=== PATIENT | male | born 1990 | race Two or more races ===

== ENCOUNTER 2020-02-20 01:54 | Emergency (ER) | payer SELFPAY ==
[~2020-02-20] VITALS: Ht 175.3 cm; Wt 81.6 kg
[2020-02-20] MEDS ORDERED: TETANUS-DIPTH-ACEL PERTUSSIS 0.5ML SYR Tdap IM ONE (03:15)
[2020-02-20] MEDS ORDERED: cefTRIAXone 1GM/50ML D5W 50 ML IV ONE (03:15)
[2020-02-20] MEDS ORDERED: MORPHINE SULFATE 4 MG/ML SYR/VIAL IV ONE (05:15)
[2020-02-20] MEDS ORDERED: NITROGLYCERIN 0.4 MG SL TAB SL ONE (05:15)
[2020-02-20 05:22] VITALS: BP 97/44
== END 2020-02-20 06:30 | disposition home or self-care (01) ==
LOC: EDBD 01:54 → ER 01:54
DX: S00.81XA Abrasion of other part of head, initial encounter (principal); F19.10 Other psychoactive substance abuse, uncomplicated; F23 Brief psychotic disorder; F10.921 Alcohol use, unspecified with intoxication delirium; X58.XXXA Exposure to other specified factors, initial encounter; Y93.89 Activity, other specified; Y92.89 Other specified places as the place of occurrence of the external cause; Y99.8 Other external cause status
CPT/HCPCS: 70450; 70486; 72125; 90471; 90715; 96365; 99285; J0696